=== PATIENT | male | born 1940 | race Caucasian/White ===

== ENCOUNTER → 2020-08-22 10:30 | Outpatient (BNVA) | payer MEDICARE, OTHER, SELFPAY | PROVIDERS: PCP Internal Medicine; Visit Provider Internal Medicine Pulmonary Disease | DX: J84.10 Pulmonary fibrosis, unspecified (principal); R39.89 Other symptoms and signs involving the genitourinary system | CPT/HCPCS: 99202 ==

== ENCOUNTER 2020-09-15 08:52 | Outpatient (REF) | payer MEDICARE, OTHER, SELFPAY ==
--- NOTE | 2020-09-15 17:08 | PFT_ITS ---
INDICATION: Pulmonary fibrosis. SPIROMETRY: The FEV1 to FVC 92% with an FEV1 of 2.28 L, which is 92% predicted and an FVC of 2.48 L, which is 72% predicted. No significant response to bronchodilators noted. Maximum voluntary ventilation 75% predicted. LUNG VOLUMES: Total lung capacity 69% predicted with an expiratory reserve volume of 123% predicted. DIFFUSION CAPACITY: DLCO 39% predicted. COMPARISONS: None. INTERPRETATION: No obstructive ventilatory defect. No significant response to bronchodilators noted. The patient does have a mild restrictive ventilatory defect consistent with his underlying pulmonary fibrosis and interstitial lung disease. There is a severe diffusion impairment secondary to the parenchymal lung disease. No comparisons available at this time. Clinical correlation warranted. Lenny Glynn MD MR/MODL / [id number]
== END 2020-09-15 08:53 | disposition home or self-care (01) ==
LOC: HO.RESP 08:52
PROVIDERS: PCP Internal Medicine; Visit Provider Internal Medicine Pulmonary Disease
DX: J84.10 Pulmonary fibrosis, unspecified (principal)
CPT/HCPCS: 94060; 94727; 94729; 99212

== ENCOUNTER 2021-06-05 16:24 | Outpatient (REF) | payer MEDICARE, OTHER, SELFPAY ==
[2021-06-05 18:53] LABS: Influenza A PCR NEGATIVE (Negative); Influenza B PCR NEGATIVE (Negative); Resp Syncy Virus RNA Qual PCR NEGATIVE (Negative); SARS COV2 PCR INHOUSE NEGATIVE (Negative)
== END 2021-06-05 16:25 | disposition home or self-care (01) ==
LOC: HO.LNP 16:24
PROVIDERS: Visit Provider Internal Medicine
DX: Z20.822 Contact with and (suspected) exposure to COVID-19 (principal); R43.9 Unspecified disturbances of smell and taste
CPT/HCPCS: 0241U

== ENCOUNTER 2021-09-03 08:56 | Outpatient (REF) | payer MEDICARE, OTHER, SELFPAY ==
--- NOTE | ~2021-09-03 | CT_ITS ---
EXAMINATION: CT CHEST WITHOUT CONTRAST CLINICAL INFORMATION: Pulmonary fibrosis. COMPARISON: None TECHNIQUE: Multidetector volumetric CT imaging of the chest was done. Axial MIP volume rendering provided. Sagittal and coronal reformatted images were obtained. This CT examination was performed using dose optimization techniques as appropriate, variously including the following: *Automated exposure control *Adjustment of mA and/or kV according to patient size (this includes techniques or standardized protocols for targeted exams where dose is matched to indication/reason for exam; i.e. extremities or head) *Use of iterative reconstruction technique DLP: 128 mGy-cm FINDINGS: SKINNER PELTS: Unremarkable. LUNGS: There is centrilobular emphysema with prominent fine interstitial markings in both lower lobes and left upper lobe. There are numerous nodular densities seen scattered throughout both lungs predominately lower lobes subpleural-based. Largest calcified nodule measures 4 mm on axial image 37/11. There is no honeycombing or ground-glass attenuation seen. Minimal atelectatic changes are seen in lingula and left lower lobe. No evidence of bronchiectasis. MEDIASTINUM: The thyroid lobes are symmetric and normal. The central trachea and bronchi are widely patent. There are small calcified lymph nodes in the precarinal space. Moderate coronary artery calcifications are seen. There is no pericardial effusion. There are pacer electrodes in the right atrium and right ventricle. PLEURA: There is no pleural effusion. No pleural mass or thickening. AXILLA: No lymphadenopathy. UPPER ABDOMEN: Visualized liver, spleen, pancreas and bilateral adrenal glands unremarkable. No radiopaque gallstone seen. 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 CT/CT chest wo con IMPRESSION: Diffuse centrilobular emphysema with reticular interstitial prominence and small micronodules most prominent in the lower lobes. No consolidation or bronchiectasis. Calcified lymph nodes in the mediastinum with coronary artery calcification. Fleischner guidelines were followed.
== END 2021-09-03 08:57 | disposition home or self-care (01) ==
LOC: HO.CT 08:56
PROVIDERS: PCP Internal Medicine; Visit Provider Internal Medicine Pulmonary Disease
DX: J84.10 Pulmonary fibrosis, unspecified (principal)
CPT/HCPCS: 71250

== ENCOUNTER → 2021-09-09 12:40 | Outpatient (BNVA) | payer MEDICARE, OTHER, SELFPAY | PROVIDERS: PCP Internal Medicine; Visit Provider Internal Medicine Pulmonary Disease | DX: J84.10 Pulmonary fibrosis, unspecified (principal) | CPT/HCPCS: 99212 ==

== ENCOUNTER 2021-10-22 08:30 | Outpatient (REF) | payer MEDICARE, OTHER, SELFPAY ==
--- NOTE | 2021-10-22 | PFT_ITS ---
INDICATION: Pulmonary fibrosis. SPIROMETRY: FEV1 to FVC 87% with an FEV1 of 2.42 L, which is 101% predicted, and an FVC of 2.77 L which is 81% predicted. No significant response to bronchodilators noted. Maximum voluntary ventilation 80% predicted. LUNG VOLUMES: Total lung capacity 69% predicted. DIFFUSION CAPACITY: 46% predicted. COMPARISON: PFTs in 2020. INTERPRETATION: No obstructive ventilatory defect. No significant response to bronchodilators noted. Normal maximum voluntary ventilation. However, the patient does have restrictive ventilatory defect which is suggestive of moderate restrictive lung disease. The patient also has a severe diffusion impairment secondary to likely the parenchymal disease. When compared to 2020, there is a significant improvement of the FVC, significant improvement of the FEV1. No significant changes in the total lung capacity, and a significant improvement in diffusion capacity. Clinical correlation warranted. MD DMITRI Amador/NE / [id number]
== END 2021-10-22 08:31 | disposition home or self-care (01) ==
LOC: HO.RESP 08:30
PROVIDERS: PCP Internal Medicine; Visit Provider Internal Medicine Pulmonary Disease
DX: J84.10 Pulmonary fibrosis, unspecified (principal)
CPT/HCPCS: 94060; 94727; 94729